=== PATIENT | female | born 1965 | race Caucasian/White ===

== ENCOUNTER 2017-03-06 12:50 | Emergency (ER) | payer SELFPAY ==
[~2017-03-06] VITALS: Ht 157.5 cm; Wt 55.0 kg
[~2017-03-06 12:50] MED LIST: NOMEDS
[2017-03-06 12:53] VITALS: Ht 157.5 cm; Wt 55.0 kg
== END 2017-03-06 14:23 | disposition left against medical advice (07) ==
LOC: FTE 12:50
DX: Z53.21 Procedure and treatment not carried out due to patient leaving prior to being seen by health care provider (principal)